=== PATIENT | male | born 1950 | race Two or more races ===

== ENCOUNTER 2019-11-06 10:38 | Outpatient (CLI) | payer OTHER | END 2019-11-06 11:00 | disposition home or self-care (01) | LOC: RAD 10:38 | DX: M25.571 Pain in right ankle and joints of right foot (principal) ==

== ENCOUNTER 2020-01-04 15:25 | Outpatient (CLI) | payer OTHER | END 2020-01-04 15:32 | disposition home or self-care (01) | LOC: RAD 15:25 | DX: M25.572 Pain in left ankle and joints of left foot (principal) ==

== ENCOUNTER 2021-09-29 13:26 | Outpatient (CLI) | payer OTHER | END 2021-09-29 13:33 | disposition home or self-care (01) | LOC: RAD 13:26 | PROVIDERS: ATTEND Orthopaedic Surgery | DX: M79.641 Pain in right hand (principal) ==

== ENCOUNTER 2024-09-18 10:25 | Outpatient (CLI) | payer OTHER | END 2024-09-18 10:38 | disposition home or self-care (01) | LOC: RAD 10:25 | PROVIDERS: ATTEND Orthopaedic Surgery | DX: M79.641 Pain in right hand (principal); M79.622 Pain in left upper arm; M79.644 Pain in right finger(s); M79.645 Pain in left finger(s) ==